=== PATIENT | female | born 1950 | race Caucasian/White ===

== ENCOUNTER 2020-12-03 19:38 | Observation (INO) | payer MEDICARE, MEDICAID ==
[~2020-12-03] VITALS: Ht 149.9 cm; Wt 71.8 kg
[~2020-12-03 19:38] MED LIST: ALAVERT10 M1 PO; ALBUTEROL SULFAT3 M3 INH; AMBIEN 5MG TABLE5 MG PO; ANORO IH; ANUSOL HC CREAM30 GM TP; ARTIFICIAL TEAR15 M7 OU; ASPERCREME85G TP; ASPIRIN E.C. 8181 MG PO; ATIVAN 0.50.5 MG/TAB PO; ATIVAN 1MG T1 MG/TAB PO; ATROVENT I0.2 MG/1 M IH; AYR SALINE MIST50 ML NAS; BIOFREEZE 0.2%-1 GE1 TOP; BUPROPION SR100 M1 PO; CALCIUM 500 W/V1 TAB PO; CALCIUM 600 MG1 EAC2 PO; COLACE 100100 MG/CAP PO; DALIRESP500 MCG PO; DEPAKOTE ER 50500 MG PO; DEPAKOTE250 MG PO; DIPROLENE AF GEL15GM TP; DULCOLAX S10 MG/SUPP RC; DULERA1 AR1 IH; FISH OIL1 IU PO; FLEET ENEM1 BOT/133 RC; FLEXERIL 1010 MG/TAB PO; FLONASE NASAL S16 GM NS; FLONASEALLERGY NS; FLOVENT DI100 MCG/Ac IH; FORTICAL200 IU/ACT NS; GLUCOPHAGE500 MG/TAB PO; GLUCOPHAGE850 MG/TAB PO; HALDOL2 MG PO; HYDROCODONE/APAP PO; HYDROCORTISONE TP; IMODIUM 2MG CAPS2 MG PO; IRON TABLETS325 MG PO; ISORDIL TITRADO30 MG PO; K-DUR 10 MEQ T10 MEQ PO; LANSOPRAZOLE30 M1 PO; LASIX 20MG TABL20 MG PO; LASIX20 MG PO; LISINOPRIL5 MG PO; MASON NATURAL1200 MG PO; MELATONIN5 M1 SL; METAMUCIL3.4 GM/DOS PO; METFORMIN500 MG PO; MIRALAX PA17 GM/Dose PO; MUCINEX 60600 MG/TA1 PO; MULTIPLE VITAMI1 CAP PO; NATURAL MAGNES200 MG PO; ONE-A-DAY ESSE1 EACH PO; PRALUENT P75 MG/1 ML SQ; PRAVACHOL 40MG40 MG PO; PREMARIN VAG42.5 GM VG; PREVACID 30MG30 M1 PO; PRILOSEC 20MG20 MG PO; PROAIR HFA0.09 MG/AC IH; PROAIR IH; RISPERDAL1 MG PO; ROXICODONE 55 MG/TAB PO; RT SPIRIVA18 MCG IH; SEROQUEL 1100 MG/TAB PO; SINGULAIR 110 MG/TAB PO; THEO-24400 MG PO; TYLENOL 500MG500 MG PO; VENTOLIN0.09 MG IH; VITAMIN C500 MG PO; VITAMIND3 5000 PO; ZESTRIL 10MG10 MG PO; ZOCOR10 MG PO; ZOFRAN ODT4 MG PO; ZYRTEC 10MG10 MG PO; [UNRECOGNIZED DRUG - OTHER] PO; [UNRECOGNIZED DRUG - OTHER] TP
[2020-12-03 20:58] VITALS: BP 107/57; PULSE 107
--- NOTE | 2020-12-03 22:00 | NUR ---
Dr Feliz notified of patients arrival and need for medication orders. New orders received and initiated.
[2020-12-04] VITALS: BP 132/68; PULSE 98; TEMP 98
[2020-12-04] MEDS ORDERED: BUTRANS20 MCG/HR TD (02:52)
[2020-12-04] MEDS ORDERED: NEURONTIN100 MG/CAP PO (02:53)
[2020-12-04] MEDS ORDERED: IMDUR 30MG30 MG/TAB PO (02:54)
[2020-12-04] MEDS ORDERED: PRINIVIL20 MG PO (02:55)
[2020-12-04] MEDS ORDERED: NORVASC 5MG5 MG/TAB PO (02:57)
[2020-12-04] MEDS ORDERED: LIPITOR20 MG PO (02:58)
[2020-12-04] MEDS ORDERED: PREDNISONE 5MG5 MG PO (03:06)
[2020-12-04] MEDS ORDERED: PREDNISONE 2.52.5 MG PO (03:10)
[2020-12-04] MEDS ORDERED: SPORANOX100 MG PO (03:13)
--- NOTE | 2020-12-04 03:20 | NUR ---
Notified [facility] of need for medication list. States will fax.
[2020-12-04] MEDS ORDERED: COLACE 100100 MG/CAP PO (03:33)
[2020-12-04] MEDS ORDERED: FERRO-TIME325 MG PO (03:36)
[2020-12-04] MEDS ORDERED: OMEGA-3 1000 MG1 CAP PO (03:36)
[2020-12-04] MEDS ORDERED: VITAMIN C500 MG PO (03:51)
[2020-12-04] MEDS ORDERED: VITAMIND3 5000 PO (03:52)
[2020-12-04 03:53] VITALS: BP 107/36; BP 107/56; PULSE 100; TEMP 97.9
[2020-12-04] MEDS ORDERED: CALCIUM 600MG+D1 TAB PO (04:18)
[2020-12-04] MEDS ORDERED: ZYRTEC 10MG10 MG PO (04:27)
[2020-12-04 06:59] LABS: BASO % 0.7 % (0.0-2.0); EOS # 0.3 K/mm3 (0.0-0.7); GRAN # 2.4 K/mm3 (1.4-6.5); LYMPH # 1.8 K/mm3 (1.2-3.4); LYMPH % 33.8 % (20.0-51.0); MEAN CELL VOLUME 95 fl (80.0-100.0); MEAN CORPUSCULAR HGB CONC 33 g/dl (33.0-37.0); MEAN PLATELET VOLUME 9.2 fl (7.4-10.4); MONO # 0.7 K/mm3 (0.1-0.6); MONO % 13.4 % (1.7-9.3); PLATELET COUNT 154 K/mm3 (130-400); RED BLOOD COUNT 2.56 M/mm3 (4.10-5.30); REDCELL DISTRIBUTION WIDTH-CV 12.6 % (11.5-14.5)
[2020-12-04 07:10] LABS: HEMATOCRIT 24.3 % (37.0-47.0); HEMOGLOBIN 7.9 g/dl (12.5-16.0); MEAN CORPUSCULAR HEMOGLOBIN 31 pg (27.0-31.0)
[2020-12-04 08:26] VITALS: BP 134/55; PULSE 92; TEMP 97.9
--- NOTE | 2020-12-04 09:40 | NUR ---
ROSLYN met with the patient and her son, Yovany (ph#[phone]), to discuss discharge plan. The patient resides at [facility] for long-term care. She state that she uses a walker and is on continuous oxygen. The patient's PCP is Dr. Severo Greer and her DPOA-HC is in EMR. It designates Yovany. The patient and Yovany report that the plan is for the patient to return back to [facility] upon discharge. Yovany reports that he will [facility] and they have the patient's portable oxygen for the ride. ROSLYN contacted and faxed updates to Chema at [facility]. Chema confirms that they will take her back. ROSLYN to continue to follow. *Discharge plan: [facility] long-term [facility]*
--- NOTE | 2020-12-04 10:23 | NUR ---
PT RESTING IN BED. MORNING MEDICATIONS GIVEN. SHIFT ASSESSMENT COMPLETED. PT REPORTS A PAIN OF 6/10 IN RLE, DECRIBES IT VERY TENDER. COMPLAINING OF RYAN WRAPS BEING TOO TIGHT, EDUCATED PT ON THE USE OF PRESSURE FOR SWELLING. FOOT HAS A GOOD PULSE AND BLOOD FLOW. DENIES ANY NEEDS AT THIS TIME. WILL CONTINUE TO MONITOR.
--- NOTE | 2020-12-04 10:37 | NUR ---
BÁRBARA BONILLA REMOVED PT PRESSURE DRESSING AT THIS TIME AND INSTRUCTED THIS RN TO DO FREQUENT CHECKS OF THE AREA. GAUZE IS CURRENTLY APPLIED TO AREA, SITE IS SOFT WITH BRUISING TO THE AREA. WILL CONTINUE TO MONITOR.
[2020-12-04 11:16] VITALS: BP 130/63; PULSE 97; TEMP 98.1
[2020-12-04] MEDS ORDERED: PLAVIX 75MG TAB75 MG PO (16:08)
--- NOTE | 2020-12-04 16:18 | NUR ---
The patient is to discharge today, 12/04, back to [facility] for long-term care. Transportation is to be by private vehicle, via the patient's son. SW notified and faxed discharge orders to the home health care social worker at [facility]. No additional needs at this time.
[2020-12-05] MEDS ORDERED: elderberry gummy PO (18:34)
[2020-12-05] MEDS ORDERED: DIPROLENE AF GEL15GM TP (18:41)
[2020-12-05] MEDS ORDERED: CALMOSEPTINE OI71 GM TP (18:58)
[2020-12-05] MEDS ORDERED: CETAPHIL COMPO480 ML TOP (18:59)
[2020-12-05] MEDS ORDERED: ATROVENT I0.2 MG/1 M IH (19:08)
[2020-12-05] MEDS ORDERED: PRALUENT P75 MG/1 ML SQ (19:11)
[2020-12-05] MEDS ORDERED: ROBITUSSIN A-C S1 M1 PO (19:13)
[2020-12-05] MEDS ORDERED: SEROQUEL 1100 MG/TAB PO (19:14)
[2020-12-05] MEDS ORDERED: FLOVENT DI100 MCG/Ac IH (19:17)
== END 2020-12-04 17:09 ==
LOC: MEDICAL 19:38
PROVIDERS: ADMIT Internal Medicine Interventional Cardiology
DX: S80.11XA Contusion of right lower leg, initial encounter (principal); I73.9 Peripheral vascular disease, unspecified; R10.31 Right lower quadrant pain; Z79.82 Long term (current) use of aspirin; Z79.899 Other long term (current) drug therapy; Z79.891 Long term (current) use of opiate analgesic; Z87.891 Personal history of nicotine dependence
CPT/HCPCS: G0378

== ENCOUNTER 2020-12-05 14:23 | Observation (INO) | payer MEDICARE, MEDICAID ==
[2020-12-05] VITALS (161 sets, daily range): BP systolic 77–121; BP diastolic 37–56; PULSE 97–113; TEMP 98.3–98.7; O2SAT 79–100
[~2020-12-05] VITALS: Ht 147.3 cm; Wt 173.5 kg
[~2020-12-05 14:23] MED LIST changes: +BUTRANS20 MCG/HR TD; +CALCIUM 600MG+D1 TAB PO; +FERRO-TIME325 MG PO; +IMDUR 30MG30 MG/TAB PO; +LIPITOR20 MG PO; +NEURONTIN100 MG/CAP PO; +NORVASC 5MG5 MG/TAB PO; +OMEGA-3 1000 MG1 CAP PO; +PLAVIX 75MG TAB75 MG PO; +PREDNISONE 2.52.5 MG PO; +PREDNISONE 5MG5 MG PO; +PRINIVIL20 MG PO; +SPORANOX100 MG PO
[2020-12-05 14:43] LABS: BASO % 0.3 % (0.0-2.0); EOS # 0.2 K/mm3 (0.0-0.7); EOS % 2.8 % (0-4.0); GRAN % 65.8 % (42.2-75.2); HEMATOCRIT 21.4 % (37.0-47.0); HEMOGLOBIN 7.1 g/dl (12.5-16.0); MEAN CELL VOLUME 95 fl (80.0-100.0); MEAN CORPUSCULAR HEMOGLOBIN 31 pg (27.0-31.0); MEAN CORPUSCULAR HGB CONC 33 g/dl (33.0-37.0); MONO # 0.8 K/mm3 (0.1-0.6); MONO % 13.4 % (1.7-9.3); PLATELET COUNT 139 K/mm3 (130-400); RED BLOOD COUNT 2.26 M/mm3 (4.10-5.30); REDCELL DISTRIBUTION WIDTH-CV 12.5 % (11.5-14.5)
[2020-12-05 15:00] LABS: ALBUMIN 3.1 gm/dL (3.4-4.8); BILIRUBIN,TOTAL 0.2 mg/dL (0.2-1.2); CALCIUM 9.3 mg/dL (8.4-10.2); CREATININE, serum 0.68 mg/dL (0.57-1.11)
[2020-12-05] MEDS ORDERED: elderberry gummy PO (18:34)
[2020-12-05] MEDS ORDERED: DIPROLENE AF GEL15GM TP (18:41)
[2020-12-05] MEDS ORDERED: CALMOSEPTINE OI71 GM TP (18:58)
[2020-12-05] MEDS ORDERED: CETAPHIL COMPO480 ML TOP (18:59)
[2020-12-05] MEDS ORDERED: ATROVENT I0.2 MG/1 M IH (19:08)
[2020-12-05] MEDS ORDERED: PRALUENT P75 MG/1 ML SQ (19:11)
[2020-12-05] MEDS ORDERED: ROBITUSSIN A-C S1 M1 PO (19:13)
[2020-12-05] MEDS ORDERED: SEROQUEL 1100 MG/TAB PO (19:14)
[2020-12-05] MEDS ORDERED: FLOVENT DI100 MCG/Ac IH (19:17)
--- NOTE | 2020-12-05 20:30 | NUR ---
Assessment complete and charted. Patient right groin/thigh/right hip hemotoma soft to palpation. Reports mild pain at site. Reported 8/10 back pain. Provided with PRN oxycodone. Patient incontinent of urine. Placed pure wick and incontinent care provided. Denies other needs at this time. Call light in reach.
[2020-12-06] VITALS (239 sets, daily range): BP systolic 95–160; BP diastolic 45–84; PULSE 81–109; TEMP 97.3–98.6; O2SAT 88–100
--- NOTE | 2020-12-06 06:19 | NUR ---
Patient required tylenol and oxycodone for pain control during night. Otherwise uneventful night. Resting in bed this AM.
[2020-12-06 07:02] LABS: BASO % 0.3 % (0.0-2.0); EOS # 0.4 K/mm3 (0.0-0.7); EOS % 7.4 % (0-4.0); GRAN # 2.6 K/mm3 (1.4-6.5); GRAN % 43.1 % (42.2-75.2); LYMPH # 2.1 K/mm3 (1.2-3.4); LYMPH % 34.3 % (20.0-51.0); MEAN CELL VOLUME 95 fl (80.0-100.0); MEAN CORPUSCULAR HGB CONC 33 g/dl (33.0-37.0); MONO # 0.8 K/mm3 (0.1-0.6); MONO % 13.9 % (1.7-9.3); PLATELET COUNT 151 K/mm3 (130-400); RED BLOOD COUNT 2.39 M/mm3 (4.10-5.30); REDCELL DISTRIBUTION WIDTH-CV 12.6 % (11.5-14.5)
[2020-12-06 07:04] LABS: HEMATOCRIT 22.6 % (37.0-47.0); HEMOGLOBIN 7.5 g/dl (12.5-16.0); MEAN CORPUSCULAR HEMOGLOBIN 31 pg (27.0-31.0)
--- NOTE | 2020-12-06 07:10 | NUR ---
Report given BRYNN Lux
[2020-12-06 07:16] LABS: CALCIUM 8.4 mg/dL (8.4-10.2); CREATININE, serum 0.55 mg/dL (0.57-1.11); POTASSIUM 4.1 mmol/L (3.5-4.5)
--- NOTE | 2020-12-06 10:57 | NUR ---
AT 0823 MISS DENNIS LEFT THE ICU IN A WHEELCHAIR WITH ALL BELONGINGS AT 0823 TO MEDICAL FLOOR ROOM 352 AND NURSE DULCE RESUMED CARE.
--- NOTE | 2020-12-06 11:00 | NUR ---
PATIENT PATIENT ORIENTED TO ROOM 352. SHE IS VERY TALKATIVE. DENIES PAIN OR OTHER NEEDS AT THIS TIME. LARGE AMOUNT OF BRUISING NOTED TO THE RIGHT GROIN, THIGH, AND ABDOMEN. ASSESSMENT COMPLETED.
--- NOTE | 2020-12-06 13:16 | NUR ---
Notified per junior account manager Demetra that the patient will need a NICHOLE form. BRYNN Mccrary and myself presented forms to the patient. Education provided. Patient verbalized that she would like her son Yovany to sign them. Son is ok with this. Copy placed in the patient's chart and original given to the patient.
[2020-12-06 20:12] LABS: HEMATOCRIT 29.6 % (37.0-47.0); HEMOGLOBIN 9.9 g/dl (12.5-16.0)
[2020-12-07 00:19] VITALS: BP 131/60; PULSE 85; TEMP 97.5
[2020-12-07 04:02] VITALS: BP 146/66; PULSE 77; TEMP 97.5
[2020-12-07 07:46] VITALS: BP 145/77; PULSE 96; TEMP 98
--- NOTE | 2020-12-07 08:12 | NUR ---
Pt assessment complete. Pt laying in bed upon entry, she reports back pain 10/10, believes this pain is due to her fall last week. Knot to posterior head. Site to lower abdomen and R femoral bruised, no hard hematoma palpated. Pt on her baseline of 3L O2 via NC. Does not want to take her lasix at this time in case she discharges today. No further needs at this time.
[2020-12-07 08:13] VITALS: BP 149/77; PULSE 95; TEMP 97.8
[2020-12-07] MEDS ORDERED: PRINIVIL5 MG PO (11:17)
[2020-12-07] MEDS ORDERED: COLACE 100100 MG/CAP PO (11:18)
--- NOTE | 2020-12-07 11:41 | NUR ---
The patient resides at [facility] for long-term. The patient is ready to discharge today. ROSLYN met with the patient and her son, Yovany. Yovany plans to transport the patient back to the facility. ROSLYN notified and faxed updates and discharge orders to Kamala at [facility]. The patient is to discharge today, 12/07, back to [facility] for long-term care. Transportation to be by private vehicle, via the patient's son. No additional needs at this time.
--- NOTE | 2020-12-07 12:34 | NUR ---
Bilateral forearm IV's dc'd catheter tips intact. Pt wheeled out of facility by staff member at this time.
--- NOTE | 2020-12-07 12:52 | NUR ---
Initial visit; Patient thanked [employer] for looking in on her and offering prayer and God's blessings. Patient wants [employer] for look in on her again.
--- NOTE | 2020-12-07 13:14 | NUR ---
Report given to John Wade RN at this time.
== END 2020-12-07 13:14 ==
LOC: COL.ER 14:23 → ICU 15:41 → MEDICAL 15:41
PROVIDERS: Personal Emergency Response Attendant; ADMIT Internal Medicine Interventional Cardiology
DX: I95.9 Hypotension, unspecified (principal); R10.9 Unspecified abdominal pain; I73.9 Peripheral vascular disease, unspecified; M54.9 Dorsalgia, unspecified; D64.9 Anemia, unspecified; S70.11XA Contusion of right thigh, initial encounter; Z87.891 Personal history of nicotine dependence; G89.29 Other chronic pain; Z79.899 Other long term (current) drug therapy; Z79.891 Long term (current) use of opiate analgesic
CPT/HCPCS: G0378; J1644; J7040; J7050; P9016; Q9967

== ENCOUNTER 2021-03-22 16:00 | Inpatient (IN) | payer MEDICARE, MEDICAID ==
[~2021-03-22] VITALS: Ht 147.3 cm; Wt 64.6 kg
[~2021-03-22 16:00] MED LIST changes: -ARTIFICIAL TEAR15 M7 OU; -ATIVAN 1MG T1 MG/TAB PO; +CALMOSEPTINE OI71 GM TP; +CETAPHIL MOIST473 ML TOP; +COMBIRESP IH; -ISORDIL TITRADO30 MG PO; +LIQUIFILM TEARS15 ML OD; +MAG-OX 400400 MG/TAB PO; -NATURAL MAGNES200 MG PO; +PRINIVIL5 MG PO; +ROBITUSSIN A-C S1 M1 PO; +ROBITUSSIN DM 105 ML PO; +elderberry gummy PO
[2021-03-22 18:32] LABS: BASO % 0.2 % (0.0-2.0); EOS # 0.1 K/mm3 (0.0-0.7); EOS % 1.2 % (0.0-4.0); GRAN # 2.2 K/mm3 (1.4-6.5); GRAN % 53.2 % (42.2-75.2); LYMPH # 1.3 K/mm3 (1.2-3.4); LYMPH % 30.5 % (20.0-51.0); MEAN CELL VOLUME 91 fl (80.0-100.0); MEAN CORPUSCULAR HGB CONC 31 g/dl (33.0-37.0); MONO # 0.6 K/mm3 (0.1-0.6); MONO % 14.4 % (1.7-9.3); PLATELET COUNT 207 K/mm3 (130-400); RED BLOOD COUNT 2.17 M/mm3 (4.10-5.30); REDCELL DISTRIBUTION WIDTH-CV 12.9 % (11.5-14.5)
[2021-03-22 18:34] LABS: HEMATOCRIT 19.8 % (37.0-47.0); HEMOGLOBIN 6.1 g/dl (12.5-16.0); MEAN CORPUSCULAR HEMOGLOBIN 28 pg (27-31)
[2021-03-22 18:49] LABS: ALANINE AMINOTRANSFERASE 10 U/L (0-55); ALBUMIN 3.7 gm/dL (3.4-4.8); ALKALINE PHOSPHATASE 40 U/L (40-150); ANION GAP 11 mmol/L (7-16); AST,SGOT 14 U/L (5-34); BILIRUBIN,TOTAL 0.2 mg/dL (0.2-1.2); BLOOD UREA NITROGEN 9 mg/dL (10-20); CALCIUM 8.7 mg/dL (8.4-10.2); CARBON DIOXIDE 28 mmol/L (23-31); CHLORIDE 104 mmol/L (98-107); CREATININE, serum 0.62 mg/dL (0.57-1.11); GLUCOSE 114 mg/dL (70-99); POTASSIUM 3.6 mmol/L (3.5-4.5); SODIUM 143 mmol/L (136-145); TOTAL PROTEIN 6.1 gm/dL (6.2-8.1)
[2021-03-22 18:50] LABS: ACETAMINOPHEN < 1.0 ug/mL (10-30); ALCOHOL(ethanol),MEDICAL < 10 mg/dL (0-10); SALICYLATE < 5.0 mg/dL (15.0-30.0)
[2021-03-22 21:44] VITALS: BP 126/56; PULSE 72; TEMP 98.3
[2021-03-22 22:00] VITALS: BP 129/87; PULSE 74; TEMP 98.3
[2021-03-22 22:15] VITALS: BP 129/63; PULSE 77; TEMP 98.4
[2021-03-22 22:45] VITALS: BP 148/44; PULSE 79; TEMP 98.1
[2021-03-23] VITALS (10 sets, daily range): BP systolic 140–162; BP diastolic 53–74; PULSE 64–109; TEMP 98.1–98.4
[2021-03-23 02:10] LABS: HEMATOCRIT 23.1 % (37.0-47.0); HEMOGLOBIN 7.6 g/dl (12.5-16.0)
[2021-03-23] MEDS ORDERED: LIQUIFILM TEARS15 ML OD (10:26)
[2021-03-23] MEDS ORDERED: AYR SALINE MIST50 ML NS (10:38)
[2021-03-23] MEDS ORDERED: CALMOSEPTINE1 OIN TP (10:41)
[2021-03-23] MEDS ORDERED: CETAPHIL MOIST473 ML TOP (10:44)
[2021-03-23] MEDS ORDERED: ATIVAN 1MG T1 MG/TAB PO (13:16)
[2021-03-23] MEDS ORDERED: MIRALAX PA17 GM/Dose PO (13:18)
[2021-03-23] MEDS ORDERED: MUCINEX 60600 MG/TA1 PO (13:18)
[2021-03-23] MEDS ORDERED: NITROSTAT0.4 MG/TAB SL (13:20)
[2021-03-23] MEDS ORDERED: PLAVIX 75MG TAB75 MG PO (13:21)
[2021-03-23] MEDS ORDERED: RISPERDAL 0.5M0.5 MG PO (13:24)
[2021-03-23] MEDS ORDERED: DESYREL 50MG50 MG PO (13:27)
[2021-03-23] MEDS ORDERED: VRAYLAR4.5 MG PO (13:28)
[2021-03-23 17:39] LABS: COLLECTION METHOD CLEAN CATCH
[2021-03-23 17:50] LABS: MUCOUS Present (NOT PRESENT); PH 6 (5-8); URINE APPEARANCE Clear (CLEAR/HAZY); URINE BACTERIA None Seen /hpf (NONE SEEN); URINE BILIRUBIN Negative (NEGATIVE); URINE BLOOD Negative (NEGATIVE); URINE COLOR Yellow (YELLOW); URINE GLUCOSE Negative (NEGATIVE); URINE KETONE 1+ (NEGATIVE); URINE LEUKOCYTE ESTERASE Negative (NEGATIVE); URINE NITRATE Negative (NEGATIVE); URINE PROTEIN(semi-quant) Negative (NEGATIVE); URINE RBC 0-2 /hpf (0-2); URINE UROBILINOGEN Negative (NEGATIVE)
[2021-03-23 17:56] LABS: TRICYCLIC ANTIDEPRESS URINE NEGATIVE
[2021-03-24 00:41] VITALS: BP 144/55; PULSE 89; TEMP 98.2
[2021-03-24 06:16] VITALS: BP 149/63; PULSE 71; TEMP 98.3
[2021-03-24 08:24] LABS: BASO % 0.8 % (0.0-2.0); EOS # 0.1 K/mm3 (0.0-0.7); EOS % 1.3 % (0.0-4.0); GRAN % 50.3 % (42.2-75.2); LYMPH # 1.1 K/mm3 (1.2-3.4); MEAN CELL VOLUME 88 fl (80.0-100.0); MEAN CORPUSCULAR HGB CONC 33 g/dl (33.0-37.0); MEAN PLATELET VOLUME 9.1 fl (7.4-10.4); MONO # 0.7 K/mm3 (0.1-0.6); MONO % 18.1 % (1.7-9.3); PLATELET COUNT 239 K/mm3 (130-400); RED BLOOD COUNT 3.02 M/mm3 (4.10-5.30); REDCELL DISTRIBUTION WIDTH-CV 12.9 % (11.5-14.5)
[2021-03-24 08:28] LABS: HEMATOCRIT 26.5 % (37.0-47.0); HEMOGLOBIN 8.6 g/dl (12.5-16.0); MEAN CORPUSCULAR HEMOGLOBIN 28 pg (27-31)
[2021-03-24 08:39] LABS: CALCIUM 8.6 mg/dL (8.4-10.2); CREATININE, serum 0.61 mg/dL (0.57-1.11); MAGNESIUM 1.7 mg/dL (1.6-2.6); POTASSIUM 3.5 mmol/L (3.5-4.5)
[2021-03-24 11:14] VITALS: BP 154/62; PULSE 81; TEMP 98.5
[2021-03-24 15:22] VITALS: BP 148/53; PULSE 88; TEMP 98.8
[2021-03-24 16:50] VITALS: TEMP 101
[2021-03-24 19:43] VITALS: BP 146/69; PULSE 88; TEMP 98.4
[2021-03-25 00:17] VITALS: BP 148/64; PULSE 93; TEMP 98.2
[2021-03-25 04:24] VITALS: BP 151/61; PULSE 92; TEMP 98.2
[2021-03-25 08:22] VITALS: BP 130/70; PULSE 84; TEMP 98.2
[2021-03-25 11:40] VITALS: BP 144/62; PULSE 84; TEMP 98
[2021-03-25 15:59] VITALS: BP 148/65; PULSE 88; TEMP 98
[2021-03-25 20:00] VITALS: BP 158/57; PULSE 76; TEMP 98.8
[2021-03-26] VITALS: BP 144/64; PULSE 86; TEMP 98.3
[2021-03-26 04:31] VITALS: BP 146/72; PULSE 76; TEMP 97.7
[2021-03-26 07:15] VITALS: BP 145/60; PULSE 69; TEMP 98.3
[2021-03-26 11:27] VITALS: BP 158/60; PULSE 79; TEMP 98
[2021-03-26] MEDS ORDERED: COLACE 100100 MG/CAP PO (12:13)
[2021-03-26] MEDS ORDERED: RISPERDAL 0.5M0.5 MG PO (12:15)
[2021-03-26 13:21] VITALS: BP 158/60; PULSE 79; TEMP 98
== END 2021-03-26 14:20 | DRG 378 ==
LOC: COL.ER 16:00 → MEDICAL 20:36 → EDBEDREQ 22:08 → MEDICAL 03-26 14:20
PROVIDERS: Internal Medicine; Internal Medicine Gastroenterology; Nurse Practitioner; Student in an Organized Health Care Education/Training Program; ADMIT Internal Medicine
PROC: 0DJ08ZZ Inspection of Upper Intestinal Tract, Via Natural or Artificial Opening Endoscopic (ICD-10-PCS; principal; 2021-03-23 10:15)
DX: K92.1 Melena (principal); D62 Acute posthemorrhagic anemia; F41.9 Anxiety disorder, unspecified; F31.9 Bipolar disorder, unspecified; J44.9 Chronic obstructive pulmonary disease, unspecified; E78.5 Hyperlipidemia, unspecified; D50.9 Iron deficiency anemia, unspecified; K21.9 Gastro-esophageal reflux disease without esophagitis; E11.9 Type 2 diabetes mellitus without complications; I11.0 Hypertensive heart disease with heart failure; I50.9 Heart failure, unspecified; K29.50 Unspecified chronic gastritis without bleeding; D12.0 Benign neoplasm of cecum; K64.9 Unspecified hemorrhoids; F25.9 Schizoaffective disorder, unspecified; F01.50 Vascular dementia, unspecified severity, without behavioral disturbance, psychotic disturbance, mood disturbance, and anxiety; Z20.822 Contact with and (suspected) exposure to COVID-19; Z99.81 Dependence on supplemental oxygen; Z88.0 Allergy status to penicillin; Z88.2 Allergy status to sulfonamides; Z23 Encounter for immunization
CPT/HCPCS: 99223-AI; 99232-AI; 99233-AI; 99239; C9113; J2060; J2405; J2704; J2765; J7030; P9016